=== PATIENT | female | born 1980 | race Caucasian/White ===

== ENCOUNTER 2025-01-24 22:08 | Emergency (ER) | payer BC ==
[~2025-01-24] VITALS: Ht 167.6 cm; Wt 106.1 kg
--- NOTE | 2025-01-25 00:34 | ERN ---
ED Note History of Present Illness Stated Complaint: C/O PAIN W/REDNESS TO RT EYE Chief Complaint: Eye Problems Time Seen by MD: 20:00 Dictation: This is a 44-year-old obese female who presented to the emergency room with complaints of redness to right eye. This started a few days ago and she was seen in the urgent care center and given gentamicin eye drops. She stated that as she use them the redness became worse she also had discomfort in the eye and tearing. No fevers chills or rigors no mucoid drainage no stringy discharge. No evidence of any lesions or bumps. No injury to the eye, she had a slight headache but denied any vision changes including blurred vision diplopia motor weakness. She has never been diagnosed with glaucoma. Patient does report some itching. Headache is very nonspecific no particular area and it is only since her eye has been red. No nasal drainage no increased lacrimation Temperature 97.3 pulse 68 respirations 20 blood pressure 180/101 pulse oximetry 98% on room air Patient has a known history of hypertension and also diabetes mellitus and currently she is not under the care of any physician and is not being treated Allergies: Coded Allergies: No Known Allergies (Unverified Allergy, Unknown, 01/24/25) Past Medical History Past Medical History: Diabetes-Type II Surgical History: None Family History: Negative Social History: Negative LMP: Jan 02, 2025 RN Note Reviewed/Agreed w/PFSH: Yes Review of System Dictation Constitutional: Negative for fever,chills, and weight loss Eyes: Negative for injury, positive for pain,redness, ENT: Negative for injury,pain or swelling Cardiovascular: Negative for chest pain, palpitations, and edema Respiratory: Negative for shortness of breath, cough, and wheezing, Abdomen/GI: Negative for abdominal pain, nausea, vomiting, diarrhea, and constipation Back: Negative for injury and pain : Negative for injury, bleeding and discharge MS/Extremity: Negative for injury and deformity Skin: Negative for rash, and discoloration Neuro: Negative for headache, weakness, numbness, tingling, and seizure Psych: Negative for suicide ideation, homicidal ideation, and hallucinations Initial Vital Sign VS Vital Signs Date Time Temp Pulse Resp B/P (MAP) Pulse Ox O2 Delivery O2 Flow Rate FiO2 01/24/25 22:10 97.3 68 20 180/101 98 Room Air 01/25/25 00:44 0 21 Physical Exam Dictation General: awake, alert, NAD Head/Face: Normocephalic, atraumatic Eyes: PERRL, EOMI, vision at baseline right eye redness throughout the sclera. No real drainage was noted no hordeolum. ENT: oral cavity clear, TMs clear, no signs of infection Neck: Trachea midline, supple, no nuchal rigidity Cardiovascular: RRR, normal S1/S2, No MRGs, no JVD Respiratory: CTAB, no respiratory distress, No rales or wheezes Abdomen: Soft, non-tender, non-distended, normal bowel sounds, no guarding or rebound. Skin: Warm, dry, normal turgor, no rash MS/Extremity: Pulses equal, no cyanosis, neurovascular intact, FROM Neuro: COAx4, GCS 15, strength 5/5, CN 2-12 intact, normal cerebellar exam, normal gait, Psych: Normal behavior, mood, and affect normal Extremities-trace edema without any palpable cords, Homans sign is negative ED Course ED Course Orders Procedure Category Date Status Time Tobramycin PHA 01/25/25 Complete Sulf/Dexamethasone 00:30 Current Medications Medications (Trade) Dose Ordered Sig/Mary Route PRN Reason Start Time Stop Time Status Last Admin Dose Admin Tobramycin/ Dexamethasone (TobraDEX EYE DROPS) 1 DROP ONCE OD 01/25/25 00:30 01/25/25 00:44 DC 01/25/25 00:32 Vital Signs Date Time Temp Pulse Resp B/P (MAP) Pulse Ox O2 Delivery O2 Flow Rate FiO2 01/25/25 00:44 98.1 70 18 157/87 99 Room Air* 0 21 01/24/25 22:10 97.3 68 20 180/101 98 Room Air We will administer medications according to the patient's complaint. Once the results are available, will review and personally interpreted the labs to rule out any acute life-threatening emergency the trach require immediate intervention and treatment. I will then re-evaluate the patient after treatment and diagnostic exams have return to determine whether the patient requires any further testing, can safely be discharged home or need further admission to hospital for additional treatment and evaluation. We will discharge her home on TobraDex eye drops for 3-5 days. And I also recommended if symptoms persist to see an journeyman operator assistant . I did extensive counseling on lifestyle modifications regular follow ups and to have her diabetes and hypertension addressed by a primary care physician and prevent long-term complications. She and her spouse at verbalized full understanding Medical Decision Making MDM MDM: Differential diagnosis: Scleritis, conjunctivitis, corneal abrasion, uveitis Rationale: Tests considered and ordered secondary to shared decision making include: Previous outside records reviewed: Old ER visits. Risk of complication and/or morbidity or mortality of patient management: None Medications-Per medication reconciliation Need for hospitalization: Patient does not meet criteria for hospitalization. Need for emergency major/minor surgery: No There are no social concerns with this patient. Prescription drug management Prescriptions will include symptomatic care Patient's prior external medical records from other ER visits were reviewed by me as indicated. Prior testing and results from previous visits were reviewed. Prior tests were taken into account with medical decision making and resource utilization, independent historian/historians were used to obtain complete medical history. I independently interpreted the test that were performed, results were reviewed by me and considered findings on radiology if ordered. Medical management and examination interpretation discussions were had by me with other qualified healthcare professionals as indicated for the patient's care. Problem List Problem List: (1) Conjunctivitis (2) Diabetes mellitus DX & DISP Disposition: Discharge Departure Impression: Primary Impression: Conjunctivitis Additional Impression: Diabetes mellitus Condition: Stable Additional Instructions: Patient and the caregiver have been informed of all the diagnostic tests and the imaging conducted during the today's visit to the emergency room and has verbalized understanding of the results I have personally reviewed and interpreted all diagnostic exams performed here in the ER today as well as the vital signs documented by the nursing staff. The patient is now being discharged to home and should follow up with the primary care physician or the specialist as directed by the ER staff. Follow-up with primary care provider in 1 to 2 days. Take medications as directed here in the emergency room. Okay to continue home medications unless otherwise discussed during your visit in the emergency room today. Return to your nearest emergency room if symptoms worsen or if there is no improvement. Call 911 if you need immediate assistance. Take Tylenol or Motrin [id number] as needed and if no contraindications are present. Increase oral hydration. A wound culture or urine culture was ordered here in the emergency room department please follow-up with primary care provider and advise them to get repeat ports from our facility. If you had any Blake wrap/splints that were applied here, please do not remove them until you see your primary care or specialty. TobraDex eye drops 1 drop in the right eye twice a day for 5 days Referrals: SANDEEP SAUCEDA MD (PCP) CARLOS COELHO MD Jan 25, 2025 00:34
[2025-01-25 00:44] VITALS: BP 157/87; PULSE 70; RESP 18; TEMP 98; O2SAT 99
== END 2025-01-25 00:44 | disposition home or self-care (01) ==
LOC: EDH 22:08
DX: H10.9 Unspecified conjunctivitis (principal); I10 Essential (primary) hypertension; E11.9 Type 2 diabetes mellitus without complications
CPT/HCPCS: 99283